=== PATIENT | female | born 1950 | race Caucasian/White ===

== ENCOUNTER 2018-05-10 15:38 | Inpatient (IN) ==
[2018-05-10] MEDS ORDERED: PHENERGAN IV PRN (18:07)
[2018-05-10] MEDS ORDERED: TYLENOL PO PRN (18:07)
[2018-05-10] MEDS ORDERED: SODIUM CHLORIDE 0.9% INJ PRN (18:07)
[2018-05-10] MEDS ORDERED: LEVAQUIN 250 MG/D5W 250 MG/50 ML IVPB IV SCH (18:07)
[2018-05-10] MEDS ORDERED: LANOXIN IV ONE (18:07)
[2018-05-10 19:16] LABS: BASO# 0.03 X1000 (0.0-0.2); BASO% 0.3 % (0.0-0.8); EOS# 0.12 X1000 (0.0-0.7); EOS% 1.2 % (0.0-10.0); HEMOGLOBIN 12.8 g/dL (12.0-16.0); IMM GRAN# 0.03 X1000 (0.0-0.04); IMM GRAN% 0.3 % (0.0-0.5); LYMPH# 1.48 X1000 (1.2-3.4); LYMPH% 14.7 % (20.5-51.1); MCH 26.8 PG (27-31); MCHC 30.5 g/dL (33-37); MCV 88.1 FL (81-99); MONO# 0.62 X1000 (0.11-0.59); MONO% 6.2 % (1.7-9.3); NEUT% 77.3 % (42.2-75.2); PLT 307 X1000 (130-400); RBC 4.77 XMIL (4.2-5.4); RDW 15.3 % (11.5-14.5); WBC 10.08 X1000 (4.8-10.8)
[2018-05-10 19:17] LABS: INR 1.01; PROTIME 14.1 Seconds (11.0-16.0); PTT 22.9 Seconds (22.3-41.8)
[2018-05-10 19:33] LABS: AGAP 16; BUN 18 mg/dL (8-22); CALCIUM 9.4 mg/dL (8.8-10.2); CHLORIDE 94 mmol/L (98-107); COSMO 285; CREATININE 0.9 mg/dL (0.5-0.9); ESTIMATED GFR > 60; GLUCOSE 128 mg/dL (70-104); POTASSIUM 3.7 mmol/L (3.5-5.1); SODIUM 141 mmol/L (136-145); TCO2 31 mmol/L (25-35)
[2018-05-10 19:42] LABS: FREE T4 1.12 ng/dL (0.93-1.70); TSH 6.61 uIUmL (0.27-4.20)
[2018-05-10] MEDS: HUMALOG SUBQ SCH (21:36)
[2018-05-10] MEDS: DUONEB (A & A) INH SCH (22:00)
[2018-05-11] MEDS: DUONEB (A & A) INH SCH ×4 (03:01→21:27)
[2018-05-11] MEDS: HUMALOG SUBQ SCH ×4 (06:01→20:39)
[2018-05-11] MEDS: PROTONIX PO SCH (06:01)
[2018-05-11] MEDS ORDERED: CARDIZEM IV ONE (07:43)
--- NOTE | 2018-05-11 07:53 | EKG Report ---
Test Performed on : 05/10/2018 4:02:37 PM Test Reason : atrial fib Blood Pressure : / mmHG Vent. Rate : 132 BPM Atrial Rate : 132 BPM P-R Int : 196 ms QRS Dur : 072 ms QT Int : 342 ms P-R-T Axes : 031 092 227 degrees QTc Int : 506 ms Sinus tachycardia. Rightward axis Marked ST abnormality, possible inferior subendocardial injury Abnormal ECG When compared with ECG of 10-MAY-2018 16:00, (Unconfirmed) Sinus rhythm. has replaced Atrial flutter. Unconfirmed Result
[2018-05-11] MEDS: PAXIL PO SCH (08:12)
[2018-05-11] MEDS: GLUCOPHAGE PO SCH ×2 (08:12→16:21)
[2018-05-11] MEDS: CARDIZEM 100 MG/NS 100 MG/100 ML IVPB IV SCH ×2 (08:13→14:58)
--- NOTE | 2018-05-11 10:39 | PROGRESS NOTE ---
DATE: 05/11/2018 SUBJECTIVE: Ms. Felix was admitted to [facility] with acute COPD exacerbation with possible lingular pneumonia. Dr. Weinberg performed a chest x-ray at his office that demonstrated diffuse fibrotic changes with a possible lingular pneumonia. She had a persistent cough productive of yellowish sputum, pleuritic chest pain, wheezing, and mild shortness of breath. She denied any fever, chills, nausea, or vomiting. This morning, she is breathing comfortably. O2 saturations are ranging from 96% to 99% on 2 liters. She continues with a nonproductive cough. The pleuritic chest pain has improved greatly. She does have a history of paroxysmal atrial fibrillation and atrial flutter. She tends to go in and out of atrial fib and atrial flutter. She has undergone cardioversion multiple times. She has had a previous ablation. She remains in atrial flutter with heart rates of 110 to 120. She denies any chest pain or anginal equivalents. She has had a previous cardiac catheterization which was grossly normal. OBJECTIVE: Vital signs: Temperature 97.9, pulse 112, respiratory rate 16, BP 131/80. CV: Tachycardic. Lungs: Distant breath sounds with increased period of expiration. She has scattered wheezing with forced expiration. Abdomen: Soft, nontender, with active bowel sounds. ASSESSMENT AND PLAN: 1. Chronic respiratory failure on home oxygen with acute chronic obstructive pulmonary disease exacerbation complicated by possible lingular pneumonia. We will continue supplemental O2, DuoNeb nebulizer treatments, and intravenous Levaquin. I will check a CT of the thorax without contrast today to better assess whether this truly represents a pneumonia versus scar tissue. 2. Paroxysmal atrial fibrillation and atrial flutter. Her heart rate is too high. She had recently been evaluated at [facility] for consideration of ablation, but she was not felt to be a good candidate. I will place her on a Cardizem drip, as her heart rate has trended upward overnight. We will consult Cardiology. She has not taken antiarrhythmics such as Multaq or amiodarone in the past because of her underlying chronic obstructive pulmonary disease. I wonder if she would benefit from medicines such as Tikosyn. cc: Loan Bach MD
--- NOTE | 2018-05-11 10:48 | HISTORY AND PHYSICAL ---
HISTORY OF PRESENT ILLNESS: Mrs. Apryl Felix is a 68-year-old, lady with a history of multiple medical problems including chronic respiratory failure with hypoxia on nocturnal continuous home oxygen, moderate COPD, mixed hyperlipidemia, depression, paroxysmal atrial fibrillation and flutter who is well known to me. She presented to Dr. Weinberg's office yesterday with complaint of a persistent cough productive of yellowish sputum, pleuritic chest pain, chest tightness and worsening shortness of breath. She denied any fever, chills, nausea or vomiting. Dr. Weinberg felt that she had a possible lingular pneumonia and the patient was sent over to [facility] for admission. She also has a history of paroxysmal atrial fibrillation and atrial flutter. She was back in atrial fibrillation with RVR. Her heart rate was in the 130s at Dr. Weinberg's office. In the ER, her heart rate was in the 80s and 90s. She denied any chest pain or anginal equivalents. She has had a previous cardiac cath which demonstrated no ischemic heart disease. PAST MEDICAL HISTORY: As above. PAST SURGICAL HISTORY: Repair of an aortic septal defect, rotator cuff repair bilaterally. Breast biopsy. ALLERGIES: Penicillin and Claritin. FAMILY HISTORY: Her father of complications of end-stage renal disease, diabetes and a hemorrhagic stroke. Her mother had Alzheimer's dementia. SOCIAL HISTORY: She does not smoke. She does not consume alcoholic beverages. MEDICATIONS: Breo Ellipta 100/25, one inhalation daily. Lasix 40 mg daily. Metformin 500 mg b.i.d., pantoprazole 40 mg daily. Paroxetine 20 mg daily. Xarelto 20 mg daily. REVIEW OF SYSTEMS: General: She denies any recent weight gain or weight loss. HEENT: No loss of visual or auditory acuity. CV: No chest pain, palpitations, or anginal equivalents. Pulmonary: No shortness of breath, PND or orthopnea. GI: No reflux, dysphagia, melena, change in bowel habits, or rectal bleeding. Endocrine: No polyuria, no polydipsia. No cold or heat intolerance. Skin: No easy bruisability. : No leakage of urine with coughing or laughing. Neuro: No migraines or seizures. PHYSICAL EXAMINATION: GENERAL: This is a chronically ill-appearing, 68-year-old, in mild distress secondary to shortness of breath. VITAL SIGNS: She is afebrile. Pulse 80, respirations 18, BP 119/87. HEENT: Fundi with arteriolar wall thickening. Pupils equal, round, reactive to light. Extraocular eye movements intact. TMs without bullae. NECK: Supple. No masses, JVD or bruits. CV: Irregularly irregular. LUNGS: Diffuse, end-expiratory wheezing with forced expiration. ABDOMEN: Soft, nontender, with active bowel sounds. No hepatosplenomegaly. No abdominal bruits. EXTREMITIES: Without edema. SKIN: No palpable purpura. /RECTAL: Exams deferred. NEUROLOGIC: Nonfocal. ASSESSMENT AND PLAN: 1. Chronic respiratory failure with hypoxia on continuous home oxygen with acute chronic obstructive pulmonary disease exacerbation complicated by possible lingular pneumonia. I will admit the patient to [facility]. We will continue supplemental O2, DuoNeb nebulizer treatments, and begin IV Levaquin pending blood and sputum cultures. She does have a lot of fibrotic changes on her chest x-ray and I will arrange for a CT of the thorax in the morning. 2. Paroxysmal atrial fibrillation and flutter. We will admit her to [facility]. Her blood pressure was a little bit low at 105/60. I will give her digoxin to help with rate control. At this point in time, I am not sure whether we should simply consider cardioverting her or whether she potentially would benefit from anti-arrhythmic such as Tikosyn. I am concerned about using amiodarone or Multaq in the setting of severe chronic obstructive pulmonary disease. We will consult Cardiology. 3. Type 2 noninsulin-dependent diabetes mellitus. We will continue 1800 calorie ADA diet. Metformin 500 mg b.i.d., as well as pattern sugars and a Humulin-R sliding scale. Given her clinical presentation and comorbid conditions, I believe that it is reasonable to admit her to [facility] for further evaluation and management. At this point in time, I anticipate that she will be in the hospital for at least 2 midnights and I will therefore place her in inpatient status. Xarelto will be used for deep vein thrombosis prophylaxis. cc: Loan Bach MD
[2018-05-11] MEDS: BREO ELLIPTA 100/25 MCG INH INH SCH (11:30)
--- NOTE | 2018-05-11 11:45 | Diag Imaging Result Doc PS360 ---
CT THORAX W/O CONTRAST - 05/11/2018 INDICATION: possible lingular pneumonia COMPARISON: 01/29/2015 FINDINGS: There is mild cardiomegaly. The lingular is occupied by a large epicardial fat pad. There are sternotomy wires. There is some hazy central interstitial infiltrate in the lung bases suggesting mild pulmonary edema. No pneumothorax or pleural effusion. There are cholecystectomy clips. There is heterogeneous fatty change of the liver. There is a small left renal cyst. There are moderate degenerative changes of the spine. No acute or suspicious bony lesion. IMPRESSION: Negative for pneumonia. Cardiomegaly and interstitial pulmonary edema. Fatty liver. This exam was performed using automated exposure control, adjustment of mA or kV according to patient size, and/or use of iterative reconstruction technique Electronically signed by Cornelius Sanchez 05/11/2018 11:42 AM
[2018-05-11] MEDS: XARELTO PO SCH (16:21)
--- NOTE | 2018-05-11 16:37 | CARDIOLOGY CONSULTATION ---
DATE: 05/11/2018 CHIEF COMPLAIN OF PRESENTATION: Shortness of breath and palpitations. HISTORY OF PRESENT ILLNESS: Ms. Felix is a 68-year-old white female with a history of COPD on home oxygen therapy, atrial fib/flutter. She has previously followed with Dr. Castillo as well as Dr. Hardin. She presented with 2 to 3 days' worth of continued palpitations and shortness of breath. She has been dealing with some upper respiratory type symptoms. She denies any orthopnea. She denies any overt chest pain. She presented and her heart rate was in the 130s. She subsequently was seen in the ER and was noted to be with a heart rate in the 80s to 90s. PAST MEDICAL HISTORY: 1. Significant for atrial flutter with multiple cardioversions in the past. She did have a flutter ablation that was partially successful. The atypical variety that she had was unable to be ablated but the typical flutter was successfully ablated. She is maintained on Xarelto. She periodically sees Dr. Hardin. 2. She has a history of chest pain that previously has been evaluated with a normal cardiac catheterization. 3. Mitral valve prolapse. 4. Mitral regurgitation. 5. Pulmonary embolus. 6. Atrial septal defect with ASD repair in 1993. 7. Diastolic heart failure. 8. COPD, on home oxygen therapy. 9. Hypertension. 10. Hyperlipidemia. 11. Peptic ulcer disease. SOCIAL HISTORY: She does not smoke. No alcoholic beverages. FAMILY HISTORY: Significant for end-stage renal disease, diabetes, and stroke in her father. Mother had Alzheimer's. REVIEW OF SYSTEMS: A 10 system review of systems is negative. OBJECTIVE: Vital signs: She is afebrile, heart rate 87, blood pressure 133/68. General: She is in no acute distress. HEENT: Oropharynx is moist. Normal dentition. Eye examination shows pink conjunctivae, white sclerae. Neck: Examination shows no obvious thyromegaly or thyroid tenderness. Cardiovascular: She sounds to be in an irregularly irregular rate controlled rhythm. Heart rate is currently in the 80s to 90s per my evaluation. She has no lower extremity edema. Chest: Sounds clear bilaterally. She has no increased work of breathing. Abdomen: Soft, nontender, nondistended. She has no obvious organomegaly. Skin: Warm and dry throughout. She has no obvious rashes. Neurological: Moving all extremities well. She has no lateralizing deficits. PERTINENT DATA: Her EKG on presentation seems to show atrial fibrillation with a rapid ventricular response. Her chest CT suggested cardiomegaly with mild interstitial pulmonary edema. Her lab data shows a white count of 10, hematocrit of 42, platelet count of 307,000. Her sodium is 141, potassium 3.7, BUN 18, creatinine 0.9. ASSESSMENT: Ms. Felix is a 68-year-old female with a history of atrial fibrillation/flutter, previously treated with antiarrhythmics. It sounds like she has been on amiodarone as well as propafenone in the past and is now maintained on Xarelto. PLAN: Currently we will try to achieve a rate control method. I will place her on metoprolol 12.5 q.6 hours and try to wean her off the diltiazem drip. We will continue her on the Xarelto. Hopefully we can maintain an adequate rate control, which she seems asymptomatic at this time. She may need to be considered for potential AV node ablation and pacemaker implantation if this becomes somewhat refractory. She has tried multiple antiarrhythmics in the past including Rythmol and amiodarone, so I do not think presently a trial of another antiarrhythmic is warranted. cc: MD Loan Lamar MD
[2018-05-11] MEDS: LOPRESSOR PO SCH (20:38)
[2018-05-12] MEDS: LOPRESSOR PO SCH ×4 (01:00→20:32)
[2018-05-12] MEDS: DUONEB (A & A) INH SCH ×4 (04:00→21:38)
[2018-05-12] MEDS: PROTONIX PO SCH (06:07)
[2018-05-12] MEDS: HUMALOG SUBQ SCH ×4 (06:07→20:32)
--- NOTE | 2018-05-12 07:13 | EKG Report ---
Test Performed on : 05/12/2018 03:01:22 AM Test Reason : Change in heart rhythm Blood Pressure : / mmHG Vent. Rate : 067 BPM Atrial Rate : 268 BPM P-R Int : 000 ms QRS Dur : 086 ms QT Int : 430 ms P-R-T Axes : 149 080 193 degrees QTc Int : 454 ms Atrial flutter. with variable AV block. ST & T wave abnormality, consider inferior ischemia ST & T wave abnormality, consider anterolateral ischemia Abnormal ECG When compared with ECG of 10-MAY-2018 16:02, (Unconfirmed) Atrial flutter. has replaced Sinus rhythm. Vent. rate has decreased BY 65 BPM Confirmed by Chai CLEMONS, Marcial Mahajan ([id number]) on 05/12/2018 8:42:15 AM
[2018-05-12] MEDS: PAXIL PO SCH (08:13)
[2018-05-12] MEDS: GLUCOPHAGE PO SCH ×2 (08:13→17:28)
[2018-05-12] MEDS: BREO ELLIPTA 100/25 MCG INH INH SCH (10:18)
--- NOTE | 2018-05-12 17:10 | PROGRESS NOTE ---
DATE: 05/12/2018 SUBJECTIVE: Mrs. Felix has a history of paroxysmal atrial fibrillation and atrial flutter. She continues to go in and out of atrial flutter. She is now off the diltiazem drip and is on low- dose metoprolol. Her heart rate has been in the 70s and 80s. She denies any chest pain, palpitations, or anginal equivalents. She has a history of type 2 oeh-gnaaypp-fexzrknhs diabetes mellitus. Her blood sugars are well controlled. Her sugars are ranging from 96-142. OBJECTIVE: Vital signs: She is afebrile. Pulse 70, respirations 18, BP 127/56. CV: Regular rate and rhythm. Lungs: Clear. Abdomen: Soft, nontender, with active bowel sounds. ASSESSMENT AND PLAN: 1. Chronic respiratory failure with acute chronic obstructive pulmonary disease exacerbation. Clinically, she is much better. The CT scan demonstrated no infiltrate. She is maintaining good O2 saturations of 98 to 100% on her regular home medications and nebulizer treatments. 2. Paroxysmal atrial fibrillation and atrial flutter. Heart rate is well controlled on low-dose metoprolol. She has had no bleeding complications secondary to the Xarelto. Dr. Byrne has spoken to the freight engineer, Dr. Hardin at [facility]. Dr. Byrne thinks that Mrs. Felix may benefit from a partial ablation with pacemaker placement. She has tried multiple antiarrhythmics in the past and Dr. Byrne did not feel another trial of an antiarrhythmic was wanted. If she remains with a good heart rate overnight, we will plan to discharge her in the morning. 3. Type 2 acx-hntkhdw-qwfnlshes diabetes mellitus. Her blood sugars are stable. We will continue an 1800 calorie ADA diet, pattern sugars, Humulin R sliding scale, and metformin 500 mg b.i.d. cc: Loan Bach MD
[2018-05-12] MEDS: XARELTO PO SCH (17:28)
--- NOTE | 2018-05-12 23:16 | CARDIOLOGY PROGRESS NOTE ---
DATE: 05/12/2018 SUBJECTIVE: Ms. Felix is a 68-year-old female with a history of atrial fibrillation. She seems to be doing better. With rate control she is not having any palpitations. Her breathing has remained well. PHYSICAL EXAMINATION: Vital Signs: She is afebrile. Heart rate is 70. Blood pressure 127/56. Her heart rates over the last several checks appear to be in the 60s to 70s. General: She is in no acute distress. Cardiovascular: She sounds to be in a regular rate and rhythm. She has no murmurs. Her telemetry seems consistent with atrial fibrillation, although it is a rather regular rhythm currently. Her chest exam is clear bilaterally. She has no increased work of breathing. Abdomen: Soft, nontender. PERTINENT DATA: She has no new laboratory data today. ASSESSMENT: Ms. Felix is a 68-year-old female, with atrial fibrillation. PLAN: She seems rate controlled on her current regimen, which consists of metoprolol at 12.5 p.o. q.6 hours. She is maintained on Xarelto as well. We will continue with this regimen for the time being, and she may follow up with Dr. Castillo as an outpatient. cc: MD Loan Lamar MD
[2018-05-13] MEDS: LOPRESSOR PO SCH ×2 (01:00→08:58)
[2018-05-13] MEDS: DUONEB (A & A) INH SCH (03:23)
[2018-05-13] MEDS: HUMALOG SUBQ SCH (06:02)
[2018-05-13] MEDS: PROTONIX PO SCH (06:02)
[2018-05-13 07:58] VITALS: BP 128/62
[2018-05-13] MEDS: GLUCOPHAGE PO SCH (08:58)
[2018-05-13] MEDS: PAXIL PO SCH (08:58)
--- NOTE | 2018-05-14 05:57 | DISCHARGE SUMMARY ---
ADMISSION DATE: 05/10/2018 DISCHARGE DATE: 05/13/2018 DISCHARGE DIAGNOSES: 1. Chronic respiratory failure with hypoxia. 2. Acute exacerbation of underlying chronic obstructive pulmonary disease. 3. Paroxysmal atrial flutter. 4. Atrial flutter with rapid ventricular response. 5. Chronic congestive heart failure secondary to diastolic dysfunction. 6. Type 2 qeb-buumxfw-tvjbuxdzb diabetes mellitus. 7. Gastroesophageal reflux disease. 8. Major depression. 9. Paroxysmal atrial fibrillation. DISCHARGE INSTRUCTIONS: 1. Return to clinic in 1 week to see me, Dr. Jamar Bach, in anticipation of a transition of care visit. 2. Activity as tolerated. 3. An 1800 calorie ADA diet. MEDICATIONS: Metoprolol 12.5 mg q.6 hours, Paxil 20 mg daily, Lasix 40 mg b.i.d., Xarelto 20 mg daily, Breo Ellipta 100/25 one inhalation daily, metformin 500 mg b.i.d., Imodium 2 mg as needed p.r.n. diarrhea, pantoprazole 40 mg daily. DISCHARGE PHYSICAL EXAMINATION: General: This is a well-developed, well-nourished very pleasant, 68-year-old lady in no apparent distress. Vital Signs: Temperature 97.3 degrees, pulse 83, respiratory rate 17, BP 128/62. HOSPITAL COURSE: Ms. Felix has a longstanding history of chronic respiratory failure with hypoxia secondary to COPD. She had presented to Dr. Weinberg's office with complaint of a cough productive of yellowish sputum, pleuritic chest pain with deep inspiration, and increasing shortness of breath. A chest x-ray appeared to demonstrate a lingular pneumonia. I initially admitted the patient to [facility]. I treated her with supplemental O2, nebulizer treatments, Breo, and broad-spectrum antibiotics including Levaquin. Previous chest x-rays have demonstrated fibrotic changes on her lung exam. I ordered a CT scan of the thorax, which demonstrated no evidence of infiltrates. Over the course of the next several days, her breathing improved markedly. She was breathing comfortably with ambulation in the halls. She did not have any worrisome cough. O2 sats were in the range of 95% to 98% on 2 liters of O2. She does have a history of type 2 fhk-ekwkqgo-vqjtwqerq diabetes mellitus. She was placed on an 1800 calorie ADA diet, pattern sugars, Humulin R sliding scale, and her regular home dosage of metformin. Blood sugars range from 93 to 148. She has a history of paroxysmal atrial fibrillation and atrial flutter. On admission, her heart was racing and skipping. An EKG demonstrated atrial fibrillation with a heart rate of 134. The patient was admitted to the CICU. We initially tried to achieve rate control with digoxin as her blood pressure was mildly depressed. She continued in atrial fibrillation and atrial flutter throughout the night with heart rate ranging from 120 to 145. We started her on a diltiazem drip and consulted Cardiology. We achieved good heart rate control on IV diltiazem, and we added low- dose metoprolol 12.5 mg q.6 hours. We weaned her off the diltiazem drip, and her heart rate remained well controlled on the metoprolol. She had no bleeding complications secondary to the Xarelto. She has tried multiple antiarrhythmics in the past including Rythmol and amiodarone. Dr. Byrne did not feel that she was a candidate for another trial of antiarrhythmics. He talked to her hat and cap sewer at [facility]. Dr. Byrne feels that Ms. Felix would benefit from a partial ablation with pacemaker placement. At the time of discharge, she remained in atrial flutter, but her heart rate ranged from 65 to 83. We will continue metoprolol for rate control and Xarelto to reduce the risk of stroke. Having reached maximum hospital benefit, the patient was discharged in stable condition. cc: Loan Bach MD
== END 2018-05-13 09:47 | disposition home or self-care (01) | DRG 191 ==
LOC: ED 15:38 → EDIPHOLD 17:43 → 3S 19:27
PROVIDERS: ADMIT Internal Medicine; ATTEND Internal Medicine
CPT/HCPCS: 71250; 80048; 82948; 84439; 84443; 85025; 85610; 85730; 87040; 93005; 93010; 94640; 94761; 96365; 96375; 99284; A9270; J1160; J1956; XXXXX

== ENCOUNTER 2018-09-17 12:17 | Inpatient (IN) ==
[2018-09-17] MEDS ORDERED: TYLENOL PO PRN (13:30)
[2018-09-17] MEDS ORDERED: PHENERGAN IV PRN (13:30)
[2018-09-17] MEDS ORDERED: IMODIUM PO PRN (13:30)
[2018-09-17] MEDS ORDERED: SODIUM CHLORIDE 0.9% INJ PRN (13:30)
[2018-09-17] MEDS: SOLU-MEDROL IV SCH (15:25)
[2018-09-17] MEDS: DUONEB (A & A) INH SCH ×2 (15:37→22:40)
[2018-09-17] MEDS: XARELTO PO SCH (18:28)
[2018-09-17] MEDS: GLUCOPHAGE PO SCH (18:28)
[2018-09-18] MEDS: SOLU-MEDROL IV SCH ×4 (00:52→23:31)
[2018-09-18] MEDS: LIPITOR PO SCH ×2 (00:52→22:26)
[2018-09-18] MEDS: LASIX PO SCH ×3 (00:53→22:26)
[2018-09-18] MEDS: CARDIZEM PO SCH ×3 (00:53→22:26)
[2018-09-18] MEDS: DUONEB (A & A) INH SCH ×4 (03:20→21:25)
[2018-09-18 07:01] LABS: URINE SOURCE CLEAN CATCH
[2018-09-18 07:04] LABS: BILIRUBIN URINE NEGATIVE (NEGATIVE); BLOOD URINE NEGATIVE (NEGATIVE); COLOR YELLOW; GLUCOSE URINE NEGATIVE (NEGATIVE); KETONE URINE NEGATIVE (NEGATIVE); LEUKOCYTES URINE NEGATIVE (NEGATIVE); NITRITE URINE NEGATIVE (NEGATIVE); PH URINE 5.5; PROTEIN URINE NEGATIVE (NEGATIVE); SP GRAVITY URINE 1.007; TURBIDITY URINE CLEAR (CLEAR); UROBILINOGEN URINE NORMAL (NORMAL)
[2018-09-18 07:08] LABS: UR EPITHELIAL CELLS <10 /HPF (<10); URINE BACTERIA NEGATIVE /HPF; URINE RBC <10 /HPF (<10); URINE WBC <10 /HPF (<10)
[2018-09-18] MEDS ORDERED: DESYREL PO PRN (08:44)
[2018-09-18] MEDS: GLUCOPHAGE PO SCH ×2 (09:15→17:27)
[2018-09-18] MEDS: LOPRESSOR PO SCH (09:15)
[2018-09-18] MEDS: LEVAQUIN PO SCH (09:15)
[2018-09-18] MEDS: PROTONIX PO SCH (09:16)
[2018-09-18] MEDS: PAXIL PO SCH (09:16)
[2018-09-18] MEDS: LANOXIN PO SCH (09:16)
[2018-09-18] MEDS: INDERAL PO SCH (09:16)
[2018-09-18] MEDS: BREO ELLIPTA 200/25 MCG INH INH SCH (09:55)
--- NOTE | 2018-09-18 10:54 | PROGRESS NOTE ---
DATE: 09/18/2018 SUBJECTIVE: Ms. Felix was admitted to [facility] with an acute chronic obstructive pulmonary disease exacerbation. She wears nocturnal home oxygen. She is breathing much more comfortably this morning. O2 saturations are ranging from 93% to 99%. Wheezing has improved significantly. She still has a persistent cough that is productive of clear to yellowish sputum. She denies any nausea, vomiting or diarrhea. OBJECTIVE: Vital Signs: Temperature 98.4 degrees, pulse 88, blood pressure 133/63, respiratory rate 16. Cardiovascular: Regular rate and rhythm. Lungs: Significantly improved air movement throughout all lung gama. There is still occasional end-expiratory wheezing with forced expiration. Abdomen: Soft and nontender with active bowel sounds. Extremities: Without edema. ASSESSMENT AND PLAN: Chronic respiratory failure with hypoxia on nocturnal home oxygen, and acute chronic obstructive pulmonary disease exacerbation. Clinically she is better. We will continue DuoNeb nebulizer treatments, reduce the Solu-Medrol to 40 mg IV q.8 hours, and resume Breo Ellipta. We will increase activity. If she continues to improve clinically I hope to be able to discharge her home tomorrow. cc: Loan Bach MD
[2018-09-18] MEDS: HUMULIN R SUBQ SCH ×3 (11:27→22:26)
[2018-09-18] MEDS: XARELTO PO SCH (17:27)
[2018-09-19] MEDS: SOLU-MEDROL IV SCH ×2 (00:45→08:12)
[2018-09-19] MEDS: DUONEB (A & A) INH SCH (03:25)
[2018-09-19 07:13] VITALS: BP 91/73
[2018-09-19] MEDS: PAXIL PO SCH (08:14)
[2018-09-19] MEDS: CARDIZEM PO SCH (08:15)
[2018-09-19] MEDS: INDERAL PO SCH (08:15)
[2018-09-19] MEDS: LOPRESSOR PO SCH ×2 (08:15→08:21)
[2018-09-19] MEDS: GLUCOPHAGE PO SCH (08:15)
[2018-09-19] MEDS: LEVAQUIN PO SCH (08:15)
[2018-09-19] MEDS: LASIX PO SCH (08:15)
[2018-09-19] MEDS: PROTONIX PO SCH (08:16)
[2018-09-19] MEDS: LANOXIN PO SCH (08:22)
[2018-09-19] MEDS: HUMULIN R SUBQ SCH (08:45)
[2018-09-19] MEDS: BREO ELLIPTA 200/25 MCG INH INH SCH (10:27)
== END 2018-09-19 09:38 | disposition home or self-care (01) | DRG 191 ==
LOC: DIRADM 12:17 → 4N 13:11
PROVIDERS: ADMIT Internal Medicine; ATTEND Internal Medicine
CPT/HCPCS: 71020; 71046; 80048; 81001; 82948; 85027; 94640; 94761; A9270; J2550; J2930; XXXXX